=== PATIENT | female | born 1950 | race Caucasian/White ===

== ENCOUNTER 2016-10-05 10:17 | Day surgery (SDC) | payer MEDICARE, OTHER ==
--- NOTE | ~2016-10-05 | EGD ---
EGD REPORT [facility] [address] [place] [place] [address] NAME: CALI PEREZ : 46 STATUS : REG [facility] PAT#: [id number] AGE: 65 ADM/REG DATE : 10/05/16 MR#: [id number] REPORT SERV DATE: 10/05/16 DICTATED BY: AMERICO DIAZ DATE: 10/05/16 REPORT STATUS : Draft TRANSCRIBED BY: [facility] DATE: 10/05/16 Endoscopy Center Patient Name: Cali Perez Date of : 1950 Attending MD: AMERICO DIAZ MD Procedure Date No Time: 10/05/2016 Procedure: Colonoscopy Indications: High risk colon cancer surveillance: Personal history of colonic polyps, Last colonoscopy: 2013 Referring MD: Ion Singh Medicines: See the Anesthesia note for documentation of the administered medications Complications: No immediate complications. Procedure: Pre-Anesthesia Assessment: - ASA Grade Assessment: IV - A patient with severe systemic disease that is a constant threat to life. After I obtained informed consent, the scope was passed under direct vision. Throughout the procedure, the patient's blood pressure, pulse, and oxygen saturations were monitored continuously. The PCF H190L [id number] was introduced through the anus and advanced to the terminal ileum, with identification of the appendiceal orifice and IC valve. The colonoscopy was performed without difficulty. The patient tolerated the procedure well. The quality of the bowel preparation was adequate. Min fecal debris Findings: The perianal and digital rectal examinations were normal. Internal hemorrhoids were found during retroflexion and were small. Diverticula were found in the sigmoid colon. A sessile polyp was found in the descending colon. The polyp was small in size. The polyp was removed with a cold biopsy forceps. Resection and retrieval were complete. A sessile polyp was found in the transverse colon. The polyp was 10 mm in size. The polyp was removed with a hot snare. Resection and retrieval were complete. Impression: - Internal hemorrhoids. - Diverticulosis in the sigmoid colon. - One small polyp in the descending colon. Resected and retrieved. - One 10 mm polyp in the transverse colon. Resected and retrieved. EGD REPORT [address] [address] NAME: CALI PEREZ : [birth year] STATUS : REG [facility] PAT#: [id number] AGE: 65 ADM/REG DATE : 10/05/16 MR#: [id number] REPORT SERV DATE: 10/05/16 DICTATED BY: AMERICO DIAZ DATE: 10/05/16 REPORT STATUS : Draft TRANSCRIBED BY: [employer] DATE: 10/05/16 Recommendation: - Patient has a contact number available for emergencies. The signs and symptoms of potential delayed complications were discussed with the patient. Return to normal activities tomorrow. Written discharge instructions were provided to the patient. - Regular diet. - Continue present medications. - Repeat colonoscopy in 3 years for surveillance. - FOR YOUR BIOPSY RESULTS: Please go to [email or web address] and register to receive your results via the portal. Your biopsy results will be posted there in about 7 to 10 days. IF you do not see result in 10 days, call office. - Restart your Eliquis today Procedure Code(s): --- Professional --- 37003, Colonoscopy, flexible, proximal to splenic flexure; with removal of tumor(s), polyp(s), or other lesion(s) by snare technique 49202, 59, Colonoscopy, flexible, proximal to splenic flexure; with biopsy, single or multiple Diagnosis Code(s): --- Professional --- K64.8, Other hemorrhoids K57.30, Diverticulosis of large intestine without perforation or abscess without bleeding D12.3, Benign neoplasm of transverse colon D12.4, Benign neoplasm of descending colon Z86.010, Personal history of colonic polyps CPT copyright 2013 [employer]. All rights reserved. The codes documented in this report are preliminary and upon aboriginal community council member review may be revised to meet current compliance requirements. Americo Diaz MD AMERICO DIAZ MD 10/05/2016 11:51 AM This report has been signed electronically. Number of Addenda: 0 Note Initiated On: 10/05/2016 11:24 AM Scope Withdrawal Time 0 hours 13 minutes 3 seconds [id number] [id number]
[~2016-10-05 10:17] MED LIST: ASA5GR PO; ASAB PO; CALAN120 MG PO; CALTRA600D PO; CAT1 PO; CELEBREX2 PO; COMBIGAN0.2 MG/0.5 OP; Calcium + D3 PO; DIOVAN HC2 PO; DIOVAN HCT PO; ELIQUIS 5 MG TAB5 MG PO; FISH OIL1200 MG PO; HALF81 PO; KLOR-CON M2020 MEQ PO; LIPITOR40 PO; MEVACOR PO; NEUR300 PO; NEXIUM20 M1 PO; NITROSTAT0.4 MG SL; NORV10 PO; NORV5 PO; OXYCON10 PO; PLAVIX PO; PRAVACHOL40 MG PO; PREV30 PO; SENTAB PO; VITAMIN D1000 UNI1 PO; VITAMIN D31000 UNIT PO
== END 2016-10-05 23:59 | disposition home or self-care (01) ==
LOC: DMU 10:17
PROVIDERS: Internal Medicine Gastroenterology
PROC: 0DBM8ZZ Excision of Descending Colon, Via Natural or Artificial Opening Endoscopic (ICD-10-PCS; principal; 2016-10-05 11:30)
PROC: 0DBL8ZZ Excision of Transverse Colon, Via Natural or Artificial Opening Endoscopic (ICD-10-PCS; 2016-10-05 11:30)
DX: Z12.11 Encounter for screening for malignant neoplasm of colon (principal); D12.4 Benign neoplasm of descending colon; D12.3 Benign neoplasm of transverse colon; K64.8 Other hemorrhoids; K57.30 Diverticulosis of large intestine without perforation or abscess without bleeding; I25.10 Atherosclerotic heart disease of native coronary artery without angina pectoris; I48.91 Unspecified atrial fibrillation; M19.90 Unspecified osteoarthritis, unspecified site; I10 Essential (primary) hypertension; G89.29 Other chronic pain; M54.9 Dorsalgia, unspecified; K21.9 Gastro-esophageal reflux disease without esophagitis; Z95.5 Presence of coronary angioplasty implant and graft; Z86.010 Personal history of colon polyps; Z95.1 Presence of aortocoronary bypass graft; Z79.899 Other long term (current) drug therapy; Z79.891 Long term (current) use of opiate analgesic; Z88.2 Allergy status to sulfonamides; Z88.1 Allergy status to other antibiotic agents
CPT/HCPCS: 88305

== ENCOUNTER 2016-10-24 11:21 | Inpatient (IN) | payer MEDICARE, OTHER ==
[2016-10-12 14:09] LABS: BASOPHILS 0.1 %; BASOPHILS ABSOLUTE 0.01 10/3/uL (0.0-0.16); EOSINOPHILS 1.2 %; EOSINOPHILS ABSOLUTE 0.09 10/3/uL (0.0-0.53); IMMATURE GRANULOCYTES 0.3 %; IMMATURE GRANULOCYTES ABSOLUTE 0.02 10/3/uL (0.0-0.11); LYMPHOCYTES 22.7 %; LYMPHOCYTES ABSOLUTE 1.75 10/3/uL (0.67-4.30); MEAN CORPUS HGB CONC 33.2 g/dL (32.0-36.0); MEAN CORPUSCULAR HEMOGLOB 31.3 pg (26.0-34.0); MEAN CORPUSCULAR VOLUME 94.3 fL (80-100); MEAN PLATELET VOLUME 9.4 fL (9.2-13.0); MONOCYTES 6.2 %; MONOCYTES ABSOLUTE 0.48 10/3/uL (0.21-1.20); NEUTROPHILS 69.5 %; NEUTROPHILS ABSOLUTE 5.36 10/3/uL (2.02-8.40); PLATELET COUNT 243 10/3/uL (150-400); RBC DISTRIBUTION WIDTH 13.1 % (12.0-16.0); WHITE BLOOD CELLS 7.7 10/3/uL (4.5-10.5)
[2016-10-12 14:11] LABS: HEMATOCRIT 44.6 % (36.0-48.0); HEMOGLOBIN 14.8 g/dL (12.0-16.0); MANUAL DIFF NO %; RED CELL COUNT 4.73 10/6/uL (4.0-5.6)
[2016-10-12 14:18] LABS: INTERNATIONAL NORMAL RATI 1.2 UNITS (-); PARTIAL THROMBO TIME 31.4 SEC (22.5-37.2); PROTIME (NOT ORD) 15.3 SEC (12.0-14.5)
[2016-10-12 14:24] LABS: ALKALINE PHOSPHATASE 93 U/L (45-117); CHLORIDE, SERUM 109 MMOL/L (96-112); CO2 (CARBON DIOXIDE) 31 MMOL/L (24-34); CREATININE 0.75 MG/DL (0.55-1.02); GFR AFRICAN AMERICAN 96 ML/MIN (>=60); GFR NON AFRICAN AMERICAN 82 ML/MIN (>=60); GLOBULIN 3.7 G/DL (2.5-4.1); GLUCOSE, SERUM 92 MG/DL (60-99); POTASSIUM, SERUM 3.8 MMOL/L (3.5-5.3); SGOT(AST) 10 U/L (5-40); SGPT(ALT) 20 U/L (5-65); TOTAL BILIRUBIN 0.4 MG/DL (0-1.2); TOTAL PROTEIN 7.5 G/DL (6.0-8.5)
[2016-10-12 14:25] LABS: ALBUMIN 3.8 G/DL (3.5-5.0); BUN (BLOOD UREA NITROGEN) 19 MG/DL (6-23); CALCIUM, SERUM 9.5 MG/DL (8.5-10.4); SODIUM, SERUM 146 MMOL/L (135-148)
[2016-10-12 14:30] LABS: ASCORBIC ACID (UR NOT ORDER) 20 (NEG); BILIRUBIN, URINE NEGATIVE (NEG); KETONE, URINE TRACE MG/DL (NEG); LEUKOCYTE ESTERASE(NOT OR NEG (NEG); WBC (NOT ORDERED) (RFLEX) 2 (0-5)
--- NOTE | ~2016-10-24 | OP ---
Record Of Operation [facility] [address] [place]. [address] NAME: CALI MEJIA : [birth year] STATUS : ADM IN PAT#: [id number] AGE: 65 ADM/REG DATE : 10/24/16 MR#: [id number] REPORT SERV DATE: 10/24/16 DICTATED BY: MARIAM MICHELLE DATE: 10/24/16 REPORT STATUS : Draft TRANSCRIBED BY: MODL DATE: 10/24/16 DATE OF PROCEDURE: 10/24/2016 PREOPERATIVE DIAGNOSIS: Left hip arthritis. POSTOPERATIVE DIAGNOSIS: Left hip arthritis. PROCEDURE PERFORMED: Left total hip arthroplasty. SURGEON: Mariam Michelle M.D. WREATH MACHINE TENDER: Frankie Jordan. ANESTHESIA: General with local infusion. PROCEDURE IN DETAIL: The patient is clearly identified and after obtaining informed consent is brought to the operating room at [facility] where here the patient is induced under general anesthesia and subsequently placed in the left lateral decubitus position. This concluded, the thigh and flank are prepped and draped in the usual manner. A time-out procedure successfully performed and after registering the knee and marking the anatomy through an approximately 4.5 incision, the skin is divided. The fascial planes are divided. The lateral fascia then is divided. Hemostasis is obtained with electrocautery and a Charnley retractor is applied. The piriformis is identified, tagged, divided, and retracted over the sciatic nerve felt deep in the wound. At which point, the mini approach to the hip is formed with dividing the capsule in a mini approach with a cuff of tissues remaining at the femoral side to accomplish repair at the conclusion of the case. Dislocating the hip, end-stage arthritic changes are noted. The tissue surrounding the femoral neck are protected with the Hohmann retractor and the femoral neck cut is made according to preoperative templating. This concluded, the femoral head is removed. The acetabulum is exposed. The labral and fluvial tissues are removed and reaming is performed. Subsequently trialing with the appropriate trial, the permanent acetabular components placed with the [place] Sector. At which point, the acetabular trial component is then placed. The proximal femur is then addressed. The structures posteromedial to the greater trochanter are removed and this concluded the cookie-cutter canal finder lateralizer and reaming is performed. This concluded, broaching is performed and with excellent fit-fill and stability for the implant trialing is performed finding excellent leg length, stability, no impingement, good kickback, no push-pull, and the lesser trochanter palpably at the appropriate distance from the ischium when compared to preoperative templating. The trials were felt to be appropriate. These are all then removed and the permanent implants are then carefully applied uneventfully. Copious irrigation is then performed with same stability and findings noted after insertion. At which point, the joint then is carefully closed in layers including capsule, piriformis, lateral fascia, deep tissues, and skin. Aquacel dressing is applied and the patient is then allowed to awaken, is placed supine and is returned to the recovery room in stable condition having tolerated the procedure well. ESTIMATED BLOOD LOSS: 200. Record Of Operation [facility] [address] [facility] [place]. [address] NAME: CALI MEJIA : 46 STATUS : ADM IN [facility]#: [id number] AGE: 65 ADM/REG DATE : 10/24/16 MR#: [id number] REPORT SERV DATE: 10/24/16 DICTATED BY: MARIAM MICHELLE DATE: 10/24/16 REPORT STATUS : Draft TRANSCRIBED BY: [employer] DATE: 10/24/16 FLUIDS: 1200. TOURNIQUET TIME: None. PATHOLOGY: Sent specimen. MICROBIOLOGY: None. COMPLICATIONS: None. SPONGE AND NEEDLE COUNTS: Reportedly correct. ANTIBIOTICS: Administered appropriately preoperatively and ordered to be discontinued within 23 hours. IMPLANTS: DePuy hip system, femur [place], size 4 high offset, +1/32 metal head. Acetabulum, [place] sector size 50 with a +4 neutral liner, and no screws. CIARAN/GEO Mariam Michelle M.D. / [id number] CC: Mariam Michelle M.D.
--- NOTE | ~2016-10-24 | CN ---
Consultation Report [address] [place]. [address] NAME: CALI MEJIA : [birth year] STATUS : ADM IN PAT#: [id number] AGE: 65 ADM/REG DATE : 10/24/16 MR#: [id number] REPORT SERV DATE: 10/25/16 DICTATED BY: PRASADMARGARITAN DATE: 10/25/16 REPORT STATUS : Draft TRANSCRIBED BY: MODL DATE: 10/25/16 CONSULTATION DATE OF CONSULTATION: 10/25/2016 REASON FOR CONSULTATION: Consulted for hypertension. REQUESTING PHYSICIAN: Kar Tang NP for for Dr. Boogie Michelle. IDENTIFYING DATA: 1. PCP is Ion Singh M.D. in [place]. 2. Securities Attorney, Singh Kaur M.D. Junior. 3. Cardiovascular surgeon Singh Chery M.D. 4. Urologist Je Benavides M.D., Roni. 5. Administrative Associate Cali Kay M.D. HISTORY OF PRESENT ILLNESS: This is a pleasant 65-year-old female with a history of hypertension, dysrhythmias, longstanding history of coronary artery disease with coronary intervention as well as cardiac stents x2 in 2010 and a CABG x4 with maze procedure in 2016. The hospitalist group has been consulted to help manage with her blood pressure. She does have a history of being on Calan SR daily. The patient's history was obtained through interview with the patient as well as review of [employer] and [employer]. PAST MEDICAL HISTORY: 1. Presbyopia. 2. Sinusitis. 3. Hay fever. 4. Glaucoma. 5. Wears reading glasses. 6. High cholesterol. 7. Hypertension. 8. Dysrhythmias. 9. Paroxysmal atrial fibrillation. 10.Arthritis. 11.Lower back disc disease. 12.GERD. 13.Cystitis. 14.Vertigo. 15.Tachy-jessica syndrome. 16.Diverticulitis. 17.Menopausal. 18.Chest pain. Consultation Report [address] [place]. [address] NAME: CALI MEJIA : 46 STATUS : ADM IN PAT#: [id number] AGE: 65 ADM/REG DATE : 10/24/16 MR#: [id number] REPORT SERV DATE: 10/25/16 DICTATED BY: PRASADMARGARITAN DATE: 10/25/16 REPORT STATUS : Draft TRANSCRIBED BY: GEO DATE: 10/25/16 HOME MEDICATIONS: 1. Eliquis 5 mg p.o. twice a day. 2. Lipitor 40 mg p.o. at bedtime. 3. Calcium 600 mg p.o. daily with vitamin D. 4. Vitamin D3 1000 units p.o. daily. 5. Nexium 20 mg p.o. daily p.r.n. 6. Neurontin 300 mg p.o. at bedtime. 7. Nitroglycerin 0.4 mg sublingual p.r.n. chest pain. 8. OxyContin 10 mg CR p.o. every 12 hours p.r.n. 9. Senokot two tablets p.o. twice a day p.r.n. 10.Calan 120 mg tablet p.o. daily. ALLERGIES: TO: 1. NEOSPORIN. 2. SULFA. 3. BETA BLOCKERS. 4. BACITRACIN. 5. POLYMYXIN B. SOCIAL HISTORY: The patient is 32 years. She has one grown son. She was previously employed in office work. Previous smoker, smoked approximately 20 years and quit in 2016. Occasional alcohol use, one drink per day on occasion, has occasional caffeine. No activity limitations in her home. FAMILY HISTORY: 1. Father is at age 75. He had an WI. 2. Mother is at age 82. She had a history of CHF, pacemaker, and she is from colon cancer. SURGICAL HISTORY: 1. Bilateral IOLI. 2. Bilateral cyst removal from ovaries in 1979. 3. Coronary intervention in 1998. 4. Cardiac stents x2 in 2010. 5. Colonoscopy September 2016. 6. Bladder tack in 2003. 7. CABG x4 with maze procedure in 2015 with EF 55%. 8. Breast reduction in 2004. 9. Bladder cancer in 2012. 10.Appendectomy in 1979. 11.Cholecystectomy in 2007. 12.Cysto on 03/30/2013. Consultation Report [facility] [address] [place]. [address] NAME: CALI MEJIA : 46 STATUS : ADM IN [facility]#: [id number] AGE: 65 ADM/REG DATE : 10/24/16 MR#: [id number] REPORT SERV DATE: 10/25/16 DICTATED BY: PRASADMARGARITA GOODEN DATE: 10/25/16 REPORT STATUS : Draft TRANSCRIBED BY: MODAntoine DATE: 10/25/16 REVIEW OF SYSTEMS: Review of systems are negative other than what is included in HPI. The patient is alert and oriented x3. No shortness of breath. No nausea or vomiting. No abdominal pain. No chest pain. No fever. Displays no confusion or agitation. PHYSICAL EXAMINATION: VITAL SIGNS: From today blood pressures postoperatively were 174/90, then 203/90, then 167/100. Presently, the blood pressure is 131/82, respiratory rate 16, heart rate 85, O2 saturation 98% on 2 L nasal cannula. She was given a dose of hydralazine to bring her blood pressure down. GENERAL: This is a very pleasant 65-year-old female, resting in bed. No acute distress. NEURO: Her head is atraumatic, normocephalic. She is alert and oriented x3. Her mood is pleasant and appropriate. Her cranial nerves are intact. NECK: Supple. Trachea is midline. No JVD noted. No obvious thyromegaly or lymphadenopathy. EENT: Sclerae are nonicteric. Pupils are equal and reactive to light. Nares are patent. Mucous membranes moist. Tongue is midline without deviation. Soft palate rises equally with phonation. CHEST: No pain with palpation. LUNGS: Clear to auscultation bilaterally with normal respiratory effort. She has no increased work of breathing with conversation. She is using her incentive spirometer as instructed. CARDIOVASCULAR: S1, S2. She is on defensive telemetry monitoring and displays a sinus rhythm with a rate at 85. ABDOMEN: Soft, nontender. Bowel sounds are active. No palpable organomegaly. Last bowel movement was on 10/24/2016. EXTREMITIES: Normal distal pulses. No calf tenderness. No edema. She has bilateral TEDs and SCDs in place for DVT prophylaxis. SKIN: Warm and dry. No unusual rashes or lesions. Normal color and turgor. PSYCH: The patient is pleasant, cooperative, appropriate mood and affect. SURGICAL WOUND SITE: Her dressing is clean, dry, and intact to the left hip op site. LABORATORY DATA: Sodium 146, potassium 3.8, chloride 109, BUN 19, creatinine 0.75. GFR 96, glucose 92, calcium 9.5, white blood cell 7.7, hemoglobin 14.8, hematocrit 44.6, platelets 243. INR 1.2. On 10/12/2016, preoperatively she had an ECG that showed sinus rhythm with occasional PVCs with a rate at 89. ASSESSMENT/PLAN: 1. Hypertension. The patient does have a history of high blood pressure as well as coronary artery disease. She has had previous paroxysmal atrial fibrillation noted and CABG and stents in the past. She is on Calan SR daily as well as normally Eliquis. Consultation Report [address] [place]. [address] NAME: CALI MEJIA : 46 STATUS : ADM IN PAT#: [id number] AGE: 65 ADM/REG DATE : 10/24/16 MR#: [id number] REPORT SERV DATE: 10/25/16 DICTATED BY: MARGARITA PARHAM DATE: 10/25/16 REPORT STATUS : Draft TRANSCRIBED BY: GEO DATE: 10/25/16 She will be continued on her Calan. We have added hydralazine p.r.n. for her systolic blood pressure greater 160. She remains on defensive telemetry. She has orders to restart Eliquis in the a.m. 2. Hyperlipidemia. Aware. Her Lipitor is continued. 3. Neuropathy. Aware. Her Neurontin is continued daily. 4. Gastroesophageal reflux disease. Aware. She is on Nexium as noted at home daily. 5. The a.m. labs; BMP, magnesium, phosphorus, and CBC. The hospitalist group would like to thank you for this consultation. Please let us know if we can be of further assistance. TRAY Margarita Parham NP / [id number] CC: Burke Freed MD
[2016-10-25 04:50] LABS: BASOPHILS 0 %; EOSINOPHILS 0 %; IMMATURE GRANULOCYTES 0.3 %; IMMATURE GRANULOCYTES ABSOLUTE 0.03 10/3/uL (0.0-0.11); LYMPHOCYTES 4.3 %; LYMPHOCYTES ABSOLUTE 0.46 10/3/uL (0.67-4.30); MEAN CORPUS HGB CONC 34.5 g/dL (32.0-36.0); MEAN CORPUSCULAR HEMOGLOB 31.9 pg (26.0-34.0); MEAN CORPUSCULAR VOLUME 92.6 fL (80-100); MEAN PLATELET VOLUME 9.3 fL (9.2-13.0); MONOCYTES 6.6 %; NEUTROPHILS 88.8 %; NEUTROPHILS ABSOLUTE 9.49 10/3/uL (2.02-8.40); PLATELET COUNT 199 10/3/uL (150-400); RBC DISTRIBUTION WIDTH 13.3 % (12.0-16.0); WHITE BLOOD CELLS 10.7 10/3/uL (4.5-10.5)
[2016-10-25 04:59] LABS: HEMATOCRIT 34.8 % (36.0-48.0); MANUAL DIFF NO %; RED CELL COUNT 3.76 10/6/uL (4.0-5.6)
[2016-10-25 05:06] LABS: BUN (BLOOD UREA NITROGEN) 11 MG/DL (6-23); CALCIUM, SERUM 8.3 MG/DL (8.5-10.4); CHLORIDE, SERUM 105 MMOL/L (96-112); CO2 (CARBON DIOXIDE) 28 MMOL/L (24-34); CREATININE 0.62 MG/DL (0.55-1.02); GFR AFRICAN AMERICAN 108 ML/MIN (>=60); GFR NON AFRICAN AMERICAN 93 ML/MIN (>=60); GLUCOSE, SERUM 153 MG/DL (60-99); POTASSIUM, SERUM 4.1 MMOL/L (3.5-5.3); SODIUM, SERUM 140 MMOL/L (135-148)
[2016-10-26 08:15] LABS: BASOPHILS 0.1 %; BASOPHILS ABSOLUTE 0.01 10/3/uL (0.0-0.16); EOSINOPHILS 0.5 %; EOSINOPHILS ABSOLUTE 0.05 10/3/uL (0.0-0.53); HEMATOCRIT 32.7 % (36.0-48.0); HEMOGLOBIN 11.1 g/dL (12.0-16.0); IMMATURE GRANULOCYTES 0.2 %; IMMATURE GRANULOCYTES ABSOLUTE 0.02 10/3/uL (0.0-0.11); LYMPHOCYTES 22.9 %; LYMPHOCYTES ABSOLUTE 2.13 10/3/uL (0.67-4.30); MEAN CORPUS HGB CONC 33.9 g/dL (32.0-36.0); MEAN CORPUSCULAR HEMOGLOB 32.1 pg (26.0-34.0); MEAN CORPUSCULAR VOLUME 94.5 fL (80-100); MEAN PLATELET VOLUME 9.6 fL (9.2-13.0); MONOCYTES 7.5 %; NEUTROPHILS 68.8 %; PLATELET COUNT 186 10/3/uL (150-400); RBC DISTRIBUTION WIDTH 13.5 % (12.0-16.0); RED CELL COUNT 3.46 10/6/uL (4.0-5.6); WHITE BLOOD CELLS 9.3 10/3/uL (4.5-10.5)
[2016-10-26 08:18] LABS: MANUAL DIFF NO %
[2016-10-26 08:24] LABS: BUN (BLOOD UREA NITROGEN) 13 MG/DL (6-23); CALCIUM, SERUM 8.2 MG/DL (8.5-10.4); CHLORIDE, SERUM 104 MMOL/L (96-112); CO2 (CARBON DIOXIDE) 30 MMOL/L (24-34); CREATININE 0.62 MG/DL (0.55-1.02); GFR AFRICAN AMERICAN 108 ML/MIN (>=60); GFR NON AFRICAN AMERICAN 93 ML/MIN (>=60); GLUCOSE, SERUM 102 MG/DL (60-99); POTASSIUM, SERUM 3.9 MMOL/L (3.5-5.3); SODIUM, SERUM 139 MMOL/L (135-148)
[2016-10-26] MEDS ORDERED: OXYCOD PO (11:17)
== END 2016-10-26 14:46 | disposition home or self-care (01) | DRG 470 ==
LOC: SDC/OF 11:21 → 3SO 18:57
PROVIDERS: Nurse Practitioner; Orthopaedic Surgery
PROC: 0SRB02A Replacement of Left Hip Joint with Metal on Polyethylene Synthetic Substitute, Uncemented, Open Approach (ICD-10-PCS; principal; 2016-10-24 13:30)
DX: M16.12 Unilateral primary osteoarthritis, left hip (principal); G62.9 Polyneuropathy, unspecified; I48.0 Paroxysmal atrial fibrillation; I10 Essential (primary) hypertension; E78.5 Hyperlipidemia, unspecified; I25.10 Atherosclerotic heart disease of native coronary artery without angina pectoris; K21.9 Gastro-esophageal reflux disease without esophagitis; Z95.1 Presence of aortocoronary bypass graft; Z79.01 Long term (current) use of anticoagulants
CPT/HCPCS: 36415; 71020; 72170; 80048; 80053; 81001; 83735; 84100; 85025; 85610; 85730; 86850; 86900; 86901; 87641; 88304; 88311; 93005; 97110-GP; 97116-GP; 97150-GP; 97161-GP; 97166-GO; 97535-GO; A9270-GY; C1776; G8978-CK-GP; G8979-CI-GP; J0360; J0690; J1170; J1885; J2250; J2270; J2274; J2370; J2405; J2710; J2795; J3010